=== PATIENT | female | born 1940 | race African-American/Black ===

== ENCOUNTER 2019-08-11 21:43 | Emergency (ER) | payer OTHER ==
[~2019-08-11] VITALS: Ht 154.9 cm; Wt 53.1 kg
[2019-08-11 22:48] LABS: ABSOLUTE NEUTROPHILS 3.5 thou/uL (1.4-8.2); BASOPHILS 0.8 % (0.0-2.0); EOSINOPHILS 2.1 % (0.0-3.0); HEMATOCRIT 33.4 % (37.0-47.0); LYMPHOCYTES 26.7 % (24.0-44.0); MCH 26.1 pg (26.0-34.0); MCHC 32.7 g/dL (28.0-37.0); MCV 79.7 fL (80.0-100.0); MONOCYTES 7.9 % (1.0-8.0); PLATELET COUNT 211 thou/uL (150-400); POLYS 62.5 % (36.0-66.0); RDW 15.2 % (10.5-14.5); WBC 5.6 thou/uL (4.0-11.0)
[2019-08-11 22:50] LABS: CREATININE 1.1 mg/dL (0.6-1.0)
[2019-08-11 22:56] LABS: ALBUMIN 3.2 g/dL (3.4-5.0); TOTAL BILIRUBIN 0.7 mg/dL (0.2-1.0); TOTAL PROTEIN 6.5 g/dL (6.4-8.2)
[2019-08-11] MEDS ORDERED: LIDODERM1 EACH TOP (23:22)
[2019-08-11 23:34] VITALS: BP 143/65
== END 2019-08-11 23:35 | disposition home or self-care (01) ==
LOC: ER 21:43
PROVIDERS: Emergency Medicine
DX: M54.31 Sciatica, right side (principal); M25.551 Pain in right hip; M79.604 Pain in right leg; M79.671 Pain in right foot

== ENCOUNTER → 2019-08-15 | Outpatient (CLI) | payer MEDICARE ==
[~2019-08-15] MED LIST: LIDODERM1 EACH TOP
== END ==
LOC: RAD 13:58
PROVIDERS: ATTEND Nurse Practitioner
DX: M51.16 Intervertebral disc disorders with radiculopathy, lumbar region (principal); M48.061 Spinal stenosis, lumbar region without neurogenic claudication

== ENCOUNTER → 2019-11-26 | Outpatient (CLI) | payer MEDICARE | LOC: LAB 14:14 | PROVIDERS: ATTEND Nurse Practitioner | DX: J02.9 Acute pharyngitis, unspecified (principal); H93.90 Unspecified disorder of ear, unspecified ear; Z20.828 Contact with and (suspected) exposure to other viral communicable diseases ==

== ENCOUNTER 2020-07-05 22:52 | Emergency (ER) | payer MEDICARE ==
[~2020-07-05] VITALS: Ht 152.4 cm; Wt 56.7 kg
[2020-07-05 23:13] LABS: URINE BILIRUBIN NEGATIVE (Negative); URINE BLOOD 1+ (Negative); URINE CLARITY CLEAR; URINE COLOR YELLOW; URINE GLUCOSE-RANDOM* NEGATIVE (Negative); URINE KETONES NEGATIVE (Negative); URINE NITRITE-REFLEX NEGATIVE (Negative); URINE PROTEIN (DIPSTICK) TRACE (Negative); URINE UROBILINOGEN 0.2 E.U./dl (0.2-1.0)
[2020-07-05 23:15] LABS: URINE LEUKOCYTES-REFLEX 1+ (Negative)
[2020-07-05 23:34] LABS: ABSOLUTE NEUTROPHILS 6.8 thou/uL (1.4-8.2); BASOPHILS 0.8 % (0.0-2.0); EOSINOPHILS 0.6 % (0.0-3.0); HEMATOCRIT 36.7 % (37.0-47.0); LYMPHOCYTES 12.3 % (24.0-44.0); MCH 26.2 pg (26.0-34.0); MCHC 32.6 g/dL (28.0-37.0); MCV 80.4 fL (80.0-100.0); PLATELET COUNT 221 thou/uL (150-400); POLYS 82.3 % (36.0-66.0); RBC 4.57 mil/uL (4.20-5.00); RDW 15.2 % (10.5-14.5); WBC 8.3 thou/uL (4.0-11.0)
[2020-07-05 23:47] LABS: CALCIUM 8.8 mg/dL (8.5-10.1); POTASSIUM 3.8 mmol/L (3.5-5.1)
[2020-07-05 23:53] LABS: TOTAL BILIRUBIN 0.5 mg/dL (0.2-1.0); TOTAL PROTEIN 7.9 g/dL (6.4-8.2)
[2020-07-05 23:55] LABS: BACTERIA-REFLEX 1-9 Few /HPF (None Seen); CASTS None Seen /LPF (None Seen); CRYSTALS None Seen /LPF (None Seen); MUCUS None Seen strn/LPF (None Seen); SQUAMOUS None Seen /LPF (0-3); URINE RBC 1-2 Rare /HPF (NONE SEEN); URINE WBC-REFLEX 6-15 Few /HPF (0-5); WBC CLUMPS Occasional (None Seen)
[2020-07-06] MEDS ORDERED: LEVAQUIN 500 M500 MG PO (02:43)
[2020-07-06] MEDS ORDERED: FLAGYL500 M1 PO (02:43)
[2020-07-06] MEDS ORDERED: ZOFRAN ODT4 MG PO (02:44)
[2020-07-06 02:50] VITALS: BP 172/62
--- NOTE | 2020-07-06 12:09 | EKG ---
[address] [address] [place] [address] ELECTROCARDIOGRAM REPORT Name: LA LAW Room #: REG [id number] Admission: 07/05/20 Attend Phys: Discharge: Date of : 38 Report #: [id number] [facility] ED Test Date: 2020-07-05 Test Time: 23:28:26 Pat Name: LA LAW Department: Room: Gender: F Reliability Technician: ABHIJIT : 1940 Requested By: Barrie Romero Order Number: [id number] MD: Mac Phillips Measurements Intervals Bishop Rate: 73 P: 73 HI: 157 QRS: 12 QRSD: 97 T: 33 QT: 428 QTc: 472 Interpretive Statements Sinus rhythm Probable left ventricular hypertrophy Baseline wander in lead(s) I,aVR,aVL No previous ECG available for comparison Electronically Signed On 07-06-2020 12:09:20 CDT by Mac Phillips [email or web address] <ELECTRONICALLY SIGNED> By: Mac Phillips MD 07/06/20 [id number] MD BEULAH Paz
== END 2020-07-06 02:50 | disposition home or self-care (01) ==
LOC: ER 22:52
PROVIDERS: Emergency Medicine
DX: K57.32 Diverticulitis of large intestine without perforation or abscess without bleeding (principal); R11.2 Nausea with vomiting, unspecified; F03.90 Unspecified dementia, unspecified severity, without behavioral disturbance, psychotic disturbance, mood disturbance, and anxiety